=== PATIENT | male | born 2000 | race Caucasian/White ===

== ENCOUNTER 2021-11-05 15:29 | Emergency (ER) | payer SELFPAY ==
[~2021-11-05] VITALS: Ht 187.9 cm; Wt 109.0 kg
[2021-11-05 15:38] VITALS: BP 137/84
--- NOTE | 2021-11-05 16:01 | ED Lower Extremity ---
General Chief Complaint: Lower Extremity Stated Complaint: BILAT LEG SWELLING Nursing Triage Note: Pt arrives at the ED via ambulation with C/O bilateral leg and groin swelling. He says that this started about a month ago when he got a tooth infection that he took antibiotics for, the tooth infection went away but the swelling did not. Source: patient Exam Limitations: no limitations (MAGY RAMIREZ) History of Present Illness Date Seen by Provider: November 05, 2021 Time Seen by Provider: 15:55 Initial Comments Patient is a 21-year-old male who presents ED bilateral leg swelling. Noted swelling about a month ago. Swelling has stayed the same. Denies of any pain, bruising or redness. States he was seen by his primary in a clinic in [place] and found to have a dental infection was placed on amoxicillin with improvement of his dental infection. History of nephrotic syndrome as a kid. No issues since he was younger. Denies of any pain with urination, frequent urination, decreased urination, flank pain, abdominal pain, fever, vomiting, diarrhea or rash. Denies any recent travels or surgeries. (MAGY RAMIREZ) Allergies and Home Medications Patient Home Medication List Home Medication List Reviewed: Yes (MAGY RAMIREZ) Cephalexin (Cephalexin) 500 Mg Tablet, 500 MG PO BID Prescribed by: LORETTA NORTH on 11/05/21 172 Furosemide (Lasix) 20 Mg Tablet, 20 MG PO DAILY Prescribed by: LORETTA NORTH on 11/05/21 172 Lisinopril (Lisinopril) 5 Mg Tablet, 5 MG PO DAILY Prescribed by: LORETTA NORTH on 11/05/21 172 Review of Systems Constitutional: No chills, No diaphoresis, No malaise EENTM: No blurred vision, No dental problems, No mouth pain, No mouth swelling, No throat pain Respiratory: No cough, No short of breath, No wheezing Cardiovascular: No chest pain, No palpitations Gastrointestinal: No abdominal pain, No diarrhea, No nausea, No vomiting Genitourinary: No decreased output, No discharge, No dysuria, No frequency, No hematuria Musculoskeletal: No back pain, No joint pain Skin: No change in color, No change in hair/nails (MAGY RAMIREZ) All Other Systems Reviewed Negative Unless Noted: Yes (MAGY RAMIREZ) Past Wwfeggk-Vhkrut-Qavozd Hx Patient Social History Tobacco Use?: No Smoking Status: Never a Smoker Smokeless Tobacco Frequency: Never a User Use of E-Cig and/or Vaping Joshua: Never a User Substance use?: No Alcohol Use?: No Pt feels they are or have been: No (MAGY RAMIREZ) Physical Exam Vital Signs Vital Signs - First Documented 11/05/21 15:38 Pulse 97 Resp 18 B/P (MAP) 137/84 (101) Pulse Ox 96 O2 Delivery Room Air (PAIGE BOB MD) Vital Signs Capillary Refill : (MAGY RAMIREZ) Height, Weight, BMI Height: '" Weight: lbs. oz. kg; 30.00 BMI Method: General Appearance: WD/WN, no apparent distress HEENT: PERRL/EOMI, normal ENT inspection, TMs normal, pharynx normal Neck: non-tender, full range of motion, supple, normal inspection Cardiovascular: regular rate, rhythm, no edema, no gallop, no JVD Respiratory: chest non-tender, lungs clear, normal breath sounds, no respiratory distress, no accessory muscle use Gastrointestinal: normal bowel sounds, non tender, soft, no organomegaly Legs: bilateral leg swelling Neurologic/Psychiatric: respiratory therapy technician II-XII nml as tested, no motor/sensory deficits, alert, normal mood/affect, oriented x 3 Skin: normal color, warm/dry, other (Pitting edema bilateral lower extremities. No erythema, ecchymosis) (MAGY RMAIREZ) Progress/Results/Core Measures Results/Orders Lab Results Laboratory Tests Test 11/05/21 15:58 Range/Units White Blood Count 6.4 4.3-11.0 10^3/uL Red Blood Count 5.63 H 4.30-5.52 10^6/uL Hemoglobin 16.6 13.3-17.7 g/dL Hematocrit 48 40-54 % Mean Corpuscular Volume 85 80-99 fL Mean Corpuscular Hemoglobin 30 25-34 pg Mean Corpuscular Hemoglobin Concent 35 32-36 g/dL Red Cell Distribution Width 13.5 10.0-14.5 % Platelet Count 295 130-400 10^3/uL Mean Platelet Volume 9.6 9.0-12.2 fL Immature Granulocyte % (Auto) 0 % Neutrophils (%) (Auto) 57 42-75 % Lymphocytes (%) (Auto) 29 12-44 % Monocytes (%) (Auto) 8 0-12 % Eosinophils (%) (Auto) 6 0-10 % Basophils (%) (Auto) 1 0-10 % Neutrophils # (Auto) 3.6 1.8-7.8 X 10^3 Lymphocytes # (Auto) 1.8 1.0-4.0 X 10^3 Monocytes # (Auto) 0.5 0.0-1.0 X 10^3 Eosinophils # (Auto) 0.4 H 0.0-0.3 10^3/uL Basophils # (Auto) 0.1 0.0-0.1 10^3/uL Immature Granulocyte # (Auto) 0.0 0.0-0.1 10^3/uL Urine Color DARK YELLOW Urine Clarity SL CLOUDY Urine pH 6.0 5-9 Urine Specific Williams >=1.030 1.016-1.022 Urine Protein 3+ H NEGATIVE Urine Glucose (UA) NEGATIVE NEGATIVE Urine Ketones NEGATIVE NEGATIVE Urine Nitrite NEGATIVE NEGATIVE Urine Bilirubin 1+ H NEGATIVE Urine Urobilinogen 1.0 < = 1.0 MG/DL Urine Leukocyte Esterase NEGATIVE NEGATIVE Urine RBC (Auto) 3+ H NEGATIVE Urine RBC NONE /HPF Urine WBC 5-10 H /HPF Urine Squamous Epithelial Cells 2-5 /HPF Urine Crystals PRESENT H /LPF Urine Amorphous Sediment RARE KAILEY URATES H /LPF Urine Bacteria FEW H /HPF Urine Casts PRESENT /LPF Urine Hyaline Casts >50 H /LPF Urine Mucus NEGATIVE /LPF Urine Culture Indicated YES Sodium Level 140 135-145 MMOL/L Potassium Level 4.1 3.6-5.0 MMOL/L Chloride Level 107 98-107 MMOL/L Carbon Dioxide Level 24 21-32 MMOL/L Anion Gap 9 5-14 MMOL/L Blood Urea Nitrogen 9 7-18 MG/DL Creatinine 0.78 0.60-1.30 MG/DL Estimat Glomerular Filtration Rate 131 BUN/Creatinine Ratio 12 Glucose Level 86 70-105 MG/DL Calcium Level 8.2 L 8.5-10.1 MG/DL Corrected Calcium 10.0 8.5-10.1 MG/DL Magnesium Level 1.8 1.6-2.4 MG/DL Total Bilirubin 0.2 0.1-1.0 MG/DL Aspartate Amino Transf (AST/SGOT) 23 5-34 U/L Alanine Aminotransferase (ALT/SGPT) 19 0-55 U/L Alkaline Phosphatase 95 40-136 U/L Total Protein 4.6 L 6.4-8.2 GM/DL Albumin 1.7 L 3.2-4.5 GM/DL (PAIGE BOB MD) Vital Signs/I&O 11/05/21 15:38 Pulse 97 Resp 18 B/P (MAP) 137/84 (101) Pulse Ox 96 O2 Delivery Room Air (PAIGE BOB MD) Blood Pressure Mean: 101 Departure Communication (PCP) Patient has pitting edema bilateral lower extremities. History of nephrotic syndrome as a child. States he had a dental infection which improved with antibiotics but still had this leg swelling over the past month. No increasing swelling but has stayed the same. Has decrease his sodium intake elevated at night without much improvement. No redness, warmth, ecchymosis. No pain with walking or pain on palpation. Urinalysis with potential UTI but did note proteinuria, hematuria but was concentrated. He had normal kidney function and electrolytes. He states he has been drinking plenty of fluids. He states he is very active. Denies excessive working out or excessive protein intake. Denies of any poor eating habits. Normal white blood count. No evidence of dental infection. Vital signs stable. No chest pain, shortness of breath. Concerning for potential nephrotic syndrome secondary to the low albumin, proteinuria. With a history of similar symptoms in the past discussed starting patient on lisinopril at 5 mg low-dose to help protect his kidneys. We will provide Lasix at a lower dose 20 mg for the next 4 days to help with the swelling. Elevate feet. Discussed compression socks. He has no flank pain or abdominal pain. Does not appear toxic or septic. Discharged with Keflex for potential secondary UTI. Discussed importance of hydration. Avoid excessive salt. Recommend follow-up your primary care physician in the next 7 days for reevaluation. May need to consider follow-up with nephrology. If any worsening symptoms return back to ED for further evaluation. Patient was discussed with patient's primary care physician at [place] who agrees with this plan of action. History of IgA nephropathy (MAGY RAMIREZ) Impression Primary Impression: Localized swelling of both lower legs Additional Impression: Leg swelling Disposition: HOME, SELF-CARE Condition: Stable Departure-Patient Inst. Decision time for Depature: 17:23 (MAGY RAMIREZ) Referrals: NO,LOCAL PHYSICIAN (PCP/Family) Primary Care Physician Patient Instructions: Swelling Add. Discharge Instructions: Need to follow-up with your primary care physician for reevaluation in the next 7 days. Recheck with urinalysis and kidney function. All discharge instructions reviewed with patient and/or family. Voiced understanding. Scripts Lisinopril (Lisinopril) 5 Mg Tablet 5 MG PO DAILY, #20 TAB Prov: MAGY RAMIREZ 11/05/21 Furosemide (Lasix) 20 Mg Tablet 20 MG PO DAILY for 4 Days, #4 TAB Prov: MAGY RAMIREZ 11/05/21 Cephalexin (Cephalexin) 500 Mg Tablet 500 MG PO BID for 7 Days, #14 TAB Prov: MAGY RAMIREZ 11/05/21 ATTENDING PHYSICIAN NOTE: I was physically present as attending physician in the emergency department during the care of this patient. I did not personally examine this patient but did review the case with LORETTA Benitez. We discussed lab results, patient history, and clinical presentation. We discussed approach to treatment and follow-up including the medications prescribed. (PAIGE BOB MD) MAGY RAMIREZ November 05, 2021 16:01 PAIGE BOB MD November 05, 2021 19:45
[2021-11-05 16:09] LABS: BASOPHILS # (AUTO) 0.1 10^3/uL (0.0-0.1); BASOPHILS % (AUTO) 1 % (0-10); EOSINOPHILS # (AUTO) 0.4 10^3/uL (0.0-0.3); EOSINOPHILS % (AUTO) 6 % (0-10); HEMATOCRIT 48 % (40-54); HEMOGLOBIN 16.6 g/dL (13.3-17.7); LYMPHOCYTES # (AUTO) 1.8 X 10^3 (1.0-4.0); LYMPHOCYTES % (AUTO) 29 % (12-44); MEAN CORPUSCULAR HEMOGLOBIN 30 pg (25-34); MEAN CORPUSCULAR HGB CONC 35 g/dL (32-36); MEAN CORPUSCULAR VOLUME 85 fL (80-99); MEAN PLATELET VOLUME 9.6 fL (9.0-12.2); MONOCYTES # (AUTO) 0.5 X 10^3 (0.0-1.0); MONOCYTES % (AUTO) 8 % (0-12); NEUTROPHILS # (AUTO) 3.6 X 10^3 (1.8-7.8); NEUTROPHILS % (AUTO) 57 % (42-75); PLATELET COUNT 295 10^3/uL (130-400); WHITE BLOOD COUNT 6.4 10^3/uL (4.3-11.0)
[2021-11-05 16:10] LABS: CLARITY,URINE SL CLOUDY; COLOR,URINE DARK YELLOW; GLUCOSE, URINE (UA) NEGATIVE (NEGATIVE); KETONES,URINE NEGATIVE (NEGATIVE); LEUKOCYTE ESTERASE ,URINE NEGATIVE (NEGATIVE); NITRITE,URINE NEGATIVE (NEGATIVE); PROTEIN,URINE 3+ (NEGATIVE)
[2021-11-05 16:23] LABS: ALBUMIN 1.7 GM/DL (3.2-4.5)
[2021-11-05 16:24] LABS: BILIRUBIN,URINE 1+ (NEGATIVE); POTASSIUM 4.1 MMOL/L (3.6-5.0)
[2021-11-05 16:25] LABS: BACTERIA,URINE FEW /HPF; CALCIUM 8.2 MG/DL (8.5-10.1)
[2021-11-05 16:26] LABS: AMORPHOUS SEDIMENT,UR RARE AMOR URATES /LPF; HYALINE CASTS, URINE >50 /LPF; TOTAL PROTEIN 4.6 GM/DL (6.4-8.2)
[2021-11-05 16:28] LABS: BILIRUBIN,TOTAL 0.2 MG/DL (0.1-1.0)
[2021-11-05 16:30] LABS: CREATININE SERUM 0.78 MG/DL (0.60-1.30)
[2021-11-05 16:33] LABS: MAGNESIUM 1.8 MG/DL (1.6-2.4)
[2021-11-05] MEDS ORDERED: FURO-125 PO (17:25)
[2021-11-05] MEDS ORDERED: LISI5TAB20 PO (17:25)
[2021-11-05] MEDS ORDERED: CEPH500T PO (17:25)
== END 2021-11-05 17:31 | disposition home or self-care (01) ==
LOC: ER 15:31
DX: R60.0 Localized edema (principal)
CPT/HCPCS: 36415; 80053; 81000; 83735; 85025; 87088